=== PATIENT | female | born 1950 | race Caucasian/White ===

== ENCOUNTER 2023-09-08 06:32 | Day surgery (SDC) | payer MEDICARE, OTHER, SELFPAY ==
[2023-09-04 14:26] VITALS: BMI 40.6
[2023-09-08] VITALS (16 sets, daily range): BP systolic 140–187; BP diastolic 67–113; BMI 40.6
[2023-09-08] MEDS: TYLENOL 1000 MG PO (11:30)
[2023-09-08] MEDS: NEURONTIN 300 MG PO (11:31)
[2023-09-08] MEDS: HEPARIN 5000 UNITS SC (11:31)
[2023-09-08] MEDS: NORMOSOL-R 1000 IV (11:31)
--- NOTE | 2023-09-08 15:35 | OR.RPT ---
Operative Report
Operative Report
PREOPERATIVE DIAGNOSIS: Right Thyroid Nodule Single - E041
POSTOPERATIVE DIAGNOSIS: Same
SURGEON:Miguel Ángel Brooke M.D.
OPERATION: Right Total Thyroidectomy w/ Limited Neck Dissection - 05441
ANESTHESIA:GET
ESTIMATED BLOOD LOSS: 3 cc
DRAINS:None
SPECIMEN: right thyroid lobe and isthmus resection and right level paratracheal tissue
FINDINGS:
COMPLICATIONS:�None
PROCEDURE:
The patient was taken to the operating room and placed in the usual supine position. After adequate general endotracheal anesthesia was established, the patient�s neck was extended, prepped, and draped in the typical sterile fashion. A 4 cm
transcervical incision was made two fingerbreadths above the sternal notch. The skin incision was made with the #15 blade, which was taken through the skin into the subcutaneous tissue. The underlying platysma muscle was divided, and subplatysmal
flaps were created superiorly to the thyroid cartilage and inferiorly to the sternal notch. Strap muscles were identified and at the midline.
Attention was turned to the patient�s right thyroid lobe. The right thyroid lobe was mobilized medially. During this process, the right middle thyroid vein and inferior thyroid artery were dissected and ligated with Ligasure. Next, the right
superior pole was taken down by dissecting and transecting the superior pole vessels with a Ligasure. The right thyroid lobe was mobilized medially. During this process, the right recurrent laryngeal nerve was identified and preserved throughout its
entire course. The right inferior parathyroid gland was identified and preserved.The right thyroid lobe with isthmus was resected off the trachea and sent to the pathology department.
At this time, the right neck dissection was performed. The tissue between the right carotid artery to the trachea into the anterior mediastinum was carefully dissected. The previously identified recurrent laryngeal nerve and parathyroid glands were
preserved. The tissue was removed and sent to the pathology department.
After obtaining adequate hemostasis, the strap muscle was approximated with #3-0 Vicryl in a running fashion, and platysma muscles were reapproximated with #3-0 Vicryl in an interrupted fashion, and the skin was approximated with #4-0 Monocryl in a
running subcuticular fashion. Steri-strips and sterile dressings were placed. The patient tolerated the procedure well. The final instrument, needle, and sponge counts were correct.
[2023-09-08] MEDS: MORPHINE SULFATE 2 MG IV ×2 (15:52→16:13)
--- NOTE | 2023-09-08 16:16 | PTCARENOTE ---
addendum: The patient arrived in PACU c/o pain trachea midline and has remained midline good phonation of 'E'. Tolerating ice chips
== END 2023-09-08 18:34 | disposition home or self-care (01) ==
LOC: SDS 06:32
PROVIDERS: ATTENDING PHYSICIAN Surgery; FAMILY PHYSICIAN Internal Medicine
DX: D34 Benign neoplasm of thyroid gland (principal)
CPT/HCPCS: 60252; 88307

== ENCOUNTER → 2023-09-14 08:33 | Outpatient (REF) | payer MEDICARE, OTHER, SELFPAY | LOC: HWRAD 08:33 | PROVIDERS: ATTENDING PHYSICIAN Internal Medicine Cardiovascular Disease; FAMILY PHYSICIAN Internal Medicine; REFERRING PHYSICIAN Surgery Vascular Surgery | DX: I71.010 Dissection of ascending aorta (principal) | CPT/HCPCS: 71250 ==

== ENCOUNTER → 2024-09-22 10:22 | Outpatient (REF) | payer MEDICARE, OTHER, SELFPAY ==
[2024-09-22 12:47] LABS: Blood Urea Nitrogen 16 mg/dl (7-17); Calcium 9.5 mg/dl (8.4-10.2); Carbon Dioxide 28 mmol/L (22-30); Chloride 105 mmol/L (98-107); Glucose 123 mg/dl (70-99); Potassium 4.8 mmol/L (3.5-5.1); Sodium 137 mmol/L (135-145); eGFR > 60.00
== END ==
LOC: HWLAB 10:22
PROVIDERS: ATTENDING PHYSICIAN Surgery Vascular Surgery; FAMILY PHYSICIAN Internal Medicine
DX: S25.09XA Other specified injury of thoracic aorta, initial encounter (principal)
CPT/HCPCS: 36415; 80048

== ENCOUNTER → 2024-09-30 11:23 | Outpatient (REF) | payer MEDICARE, OTHER, SELFPAY | LOC: RAD 11:23 | PROVIDERS: ATTENDING PHYSICIAN Surgery Vascular Surgery | DX: S25.09XA Other specified injury of thoracic aorta, initial encounter (principal) | CPT/HCPCS: 71275; 74174; Q9967 ==